=== PATIENT | male | born 1960 | race Caucasian/White ===

== ENCOUNTER 2020-03-19 09:47 | Emergency (ER) | payer BC, OTHER ==
[2020-03-19] MEDS ORDERED: TETRACAINE 0.5% HCL 0.6ML DROPPER.BOTTLE OD ONE (09:50)
[2020-03-19] MEDS ORDERED: FLUORESCEIN NA 1 EA STRIP OD ONE (09:50)
[2020-03-19 10:05] VITALS: BP 128/84; PULSE 66; TEMP 99.1; BMI 25.7
== END 2020-03-19 10:25 | disposition home or self-care (01) ==
LOC: FER 09:47
DX: S05.01XA Injury of conjunctiva and corneal abrasion without foreign body, right eye, initial encounter (principal)
CPT/HCPCS: 99283-25

== ENCOUNTER 2021-03-02 21:06 | Emergency (ER) | payer BC, OTHER ==
[2021-03-02 21:26] VITALS: BP 123/76; PULSE 68; TEMP 98; BMI 25.1
== END 2021-03-02 22:50 | disposition home or self-care (01) ==
LOC: JER 21:06
DX: S22.41XA Multiple fractures of ribs, right side, initial encounter for closed fracture (principal); W19.XXXA Unspecified fall, initial encounter; Y92.9 Unspecified place or not applicable
CPT/HCPCS: 71101-TC-RT-FY; 99284-25